=== PATIENT | female | born 1990 | race African-American/Black ===

== ENCOUNTER 2022-02-19 08:52 | Inpatient (IN) | payer MEDICARE, MEDICAID ==
[~2022-02-19] VITALS: Ht 165.1 cm; Wt 113.4 kg
[2022-02-19] MEDS ORDERED: NALOXONE HCL 0.4 MG/ML 1ML VIAL IM PRN (09:45)
[2022-02-19] MEDS ORDERED: CARBOPROST TROMETHAMINE 250 MCG/ML AMPUL IM PRN (09:45)
[2022-02-19] MEDS ORDERED: BUTORPHANOL TARTRATE 2 MG/ML VIAL IV PRN (09:45)
[2022-02-19] MEDS ORDERED: OXYTOCIN 30 UNITS/500ML NS PMX 500 ML IV SCH (09:45)
[2022-02-19] MEDS ORDERED: METHYLERGONOVINE MALEATE 0.2 MG/ML IM PRN (09:45)
[2022-02-19] MEDS ORDERED: LIDOCAINE HCL 1% 20ML VIAL (Pyxis) INJ INFIL SCH (09:45)
[2022-02-19] MEDS ORDERED: LACTATED RINGERS 1,000 ML IV SCH (10:00)
[2022-02-19] MEDS ORDERED: PENICILLIN G POTASSIUM 5 MMU in DEXT 5% WATER 100 ML IV SCH (10:00)
[2022-02-19 10:28] VITALS: BP 146/67
[2022-02-19 10:52] LABS: CHLORIDE 108 mEq/L (98-107)
[2022-02-19 10:54] LABS: INR 0.9; PARTIAL THROMBOPLASTIN TIME 31.6 sec (23.4-31.0); PROTHROMBIN TIME 9.7 sec (9.6-11.0)
[2022-02-19 11:23] LABS: BASOPHILS % 0.3 % (0.0-2.0); EOSINOPHILS % 0.1 % (0.0-5.0); HEMATOCRIT. 35.2 % (36.0-48.0); HEMOGLOBIN. 11.7 g/dL (12.0-16.0); LYMPHOCYTES % 12.7 % (20.0-50.0); MEAN CORPUSCULAR HEMOGLOBIN 29.8 pg (28.0-32.0); MEAN CORPUSCULAR VOLUME 89.5 fL (81.0-99.0); MEAN PLATELET VOLUME 9.2 fl (7.4-10.4); MONOCYTES % 7.2 % (2.0-8.0); NEUTROPHILS % 79.7 % (40.0-76.0); PLATELET 245 x1000/uL (130-400); RED BLOOD CELL COUNT 3.94 mill/uL (4.2-5.4); RED CELL DISTRIBUTION WIDTH 15.1 % (11.6-14.6)
[2022-02-19 13:05] LABS: HEPATITIS B SURFACE ANTIGEN NEGATIVE
[2022-02-19] MEDS ORDERED: PENICILLIN G POTASSIUM 2.5 MMU in DEXTROSE 5% WATER 50 ML IV SCH (14:00)
[2022-02-19 20:40] LABS: CLARITY URINE CLEAR (CLEAR); COLOR URINE DARK YELLOW (YELLOW); KETONES URINE 1+ (NEGATIVE); LEUKOCYTE ESTERASE URINE NEGATIVE (NEGATIVE); NITRITE URINE NEGATIVE (NEGATIVE); OCCULT BLOOD URINE NEGATIVE (NEGATIVE); PH URINE 6.5 (4.5-8.0); PROTEIN URINE 1+ (NEGATIVE); SPECIFIC GRAVITY URINE 1.022 (1.005-1.030)
[2022-02-19 21:05] LABS: *AMPHETAMINES SCREEN URINE NEGATIVE (NEGATIVE); *BARBITURATES SCREEN URINE NEGATIVE (NEGATIVE); *BENZODIAZEPINES SCREEN URINE NEGATIVE (NEGATIVE); *COCAINE SCREEN URINE NEGATIVE (NEGATIVE); CANNABINOID URINE SCREEN NEGATIVE (NEGATIVE); METHADONE URINE SCREEN NEGATIVE (NEGATIVE); OPIATES URINE SCREEN NEGATIVE (NEGATIVE); PHENCYCLIDINE URINE SCREEN NEGATIVE (NEGATIVE)
== END 2022-02-19 11:50 | disposition left against medical advice (07) | DRG 833 ==
LOC: 8 EST LDRP 08:52 → OBSVTOIN 08:52
PROVIDERS: ADMIT Obstetrics & Gynecology; ATTEND Obstetrics & Gynecology
DX: O99.343 Other mental disorders complicating pregnancy, third trimester (principal); F41.9 Anxiety disorder, unspecified; F31.9 Bipolar disorder, unspecified; Z53.29 Procedure and treatment not carried out because of patient's decision for other reasons; Z20.822 Contact with and (suspected) exposure to COVID-19; O99.820 Streptococcus B carrier state complicating pregnancy; F20.9 Schizophrenia, unspecified; Z3A.40 40 weeks gestation of pregnancy
CPT/HCPCS: 36415; 76805; 80053; 80305; 81003; 85025; 86592; 86703; 86762; 86850; 86900; 87340; 87426; J0595; J2540; J3490; J7060; J7120; J2590

== ENCOUNTER 2022-02-19 15:58 | Inpatient (IN) | payer MEDICARE, MEDICAID ==
[~2022-02-19] VITALS: Ht 165.1 cm; Wt 96.0 kg
[2022-02-19] MEDS ORDERED: BUTORPHANOL TARTRATE 2 MG/ML VIAL IV PRN (16:45)
[2022-02-19] MEDS ORDERED: BUTORPHANOL TARTRATE 2 MG/ML VIAL IM PRN (16:45)
[2022-02-19] MEDS ORDERED: PROPOFOL 200MG/20ML VIAL IV ONE (19:00)
[2022-02-19] MEDS ORDERED: SUCCINYLCHOLINE CHLORIDE 200MG/10ML IV ONE (19:03)
[2022-02-19] MEDS ORDERED: MIDAZOLAM HCL 2 MG/2 ML VIAL ONE (19:15)
[2022-02-19] MEDS ORDERED: HYDROMORPHONE HCL/PF 2MG/ML CPJ ONE (19:49)
[2022-02-19] MEDS ORDERED: CEFAZOLIN SODIUM 1000MG/VIAL ONE (19:50)
[2022-02-19] MEDS ORDERED: DEXAMETHASONE 4MG/ML 1ML VIAL ONE (19:50)
[2022-02-19] MEDS ORDERED: ONDANSETRON HCL 4MG/2ML INJ ONE (19:50)
[2022-02-19] MEDS ORDERED: LIDOCAINE HCL 1% 20ML VIAL (Pyxis) INJ ONE (19:51)
[2022-02-19] MEDS ORDERED: ONDANSETRON HCL 4MG/2ML INJ IV PRN (20:00)
[2022-02-19] MEDS ORDERED: DEXT 5%/LACTATED RINGERS 1,000 ML IV SCH (20:00)
[2022-02-19] MEDS ORDERED: LANOLIN OINT 7GM TUBE TOP PRN (20:00)
[2022-02-19] MEDS ORDERED: DIPHENHYDRAMINE 25MG CAPSULE PO PRN (20:00)
[2022-02-19] MEDS ORDERED: BISACODYL 10MG SUPP PR PRN (20:00)
[2022-02-19] MEDS ORDERED: OXYTOCIN 30 UNITS/500ML NS PMX 500 ML IV SCH (20:00)
[2022-02-19] MEDS ORDERED: IBUPROFEN 400MG TABLET PO PRN (20:00)
[2022-02-19] MEDS ORDERED: HEMORRHOIDAL SUPP PR PRN (20:00)
[2022-02-19] MEDS ORDERED: RHO(D) IMMUNE GLOBULIN 300 MCG/SYR IM PRN (20:00)
[2022-02-19] MEDS ORDERED: ACETAMINOPHEN WITH CODEINE 300/30MG TABLET PO PRN (20:00)
[2022-02-19] MEDS ORDERED: NALOXONE HCL 0.4MG/ML VIAL IV PRN (20:15)
[2022-02-19] MEDS ORDERED: DOCUSATE SODIUM 100MG CAPSULE PO SCH (21:00)
[2022-02-19] MEDS ORDERED: HALOPERIDOL LACTATE 5MG/ML VIAL IM NR (21:00)
[2022-02-19] MEDS ORDERED: DIPHENHYDRAMINE 50MG/ML VIAL IV NR (21:00)
[2022-02-19] MEDS: HYDROMORPHONE HCL/PF 2MG/ML CPJ IV PRN (22:51)
[2022-02-20 00:20] VITALS: BP 138/79
[2022-02-20] MEDS: HYDROMORPHONE HCL/PF 2MG/ML CPJ IV PRN (02:51)
[2022-02-20 04:00] VITALS: BP 135/76
[2022-02-20 06:21] LABS: HEMATOCRIT. 33.7 % (36.0-48.0); HEMOGLOBIN. 11.2 g/dL (12.0-16.0); MEAN CORPUSCULAR HEMOGLOBIN 30.1 pg (28.0-32.0); MEAN CORPUSCULAR VOLUME 90.2 fL (81.0-99.0); MEAN PLATELET VOLUME 9.1 fl (7.4-10.4); PLATELET 228 x1000/uL (130-400); RED BLOOD CELL COUNT 3.74 mill/uL (4.2-5.4); RED CELL DISTRIBUTION WIDTH 15.5 % (11.6-14.6)
[2022-02-20] MEDS ORDERED: DIPHENHYDRAMINE 50MG/ML VIAL IV NR (07:15)
[2022-02-20] MEDS: FERROUS SULFATE 325MG TABLET PO SCH ×2 (07:30→12:30)
[2022-02-20] MEDS ORDERED: HALOPERIDOL LACTATE 5MG/ML VIAL IM NR (08:00)
[2022-02-20] MEDS ORDERED: HALOPERIDOL 5MG TABLET PO NR (08:00)
[2022-02-20 09:30] VITALS: BP 138/80
[2022-02-20] MEDS: MAGNESIUM/ALUMINUM HYDROXIDE/SIMETHICONE 30ML UDC PO SCH (12:30)
[2022-02-20 13:00] VITALS: BP 148/85
[2022-02-20] MEDS: SIMETHICONE 80MG TABLET CHEW PO SCH (13:00)
[2022-02-20] MEDS ORDERED: HALOPERIDOL 5MG TABLET PO PRN (14:00)
[2022-02-20 14:27] LABS: PLATELET ESTIMATE NORMAL
[2022-02-20] MEDS ORDERED: LORAZEPAM 1MG TABLET PO PRN (15:00)
[2022-02-20 16:29] VITALS: BP 140/80
[2022-02-20 20:00] VITALS: BP 135/75
[2022-02-20] MEDS: IBUPROFEN 800MG TABLET PO PRN (20:00)
[2022-02-21] VITALS (7 sets, daily range): BP systolic 121–148; BP diastolic 70–97
[2022-02-21] MEDS: IBUPROFEN 800MG TABLET PO PRN ×3 (04:32→21:23)
[2022-02-21 06:27] LABS: BASOPHILS % 0.2 % (0.0-2.0); EOSINOPHILS % 0.1 % (0.0-5.0); HEMATOCRIT. 32.7 % (36.0-48.0); HEMOGLOBIN. 10.8 g/dL (12.0-16.0); LYMPHOCYTES % 13.9 % (20.0-50.0); MEAN CORPUSCULAR HEMOGLOBIN 29.7 pg (28.0-32.0); MEAN CORPUSCULAR VOLUME 90.1 fL (81.0-99.0); MEAN PLATELET VOLUME 8.9 fl (7.4-10.4); MONOCYTES % 7.8 % (2.0-8.0); PLATELET 234 x1000/uL (130-400); RED BLOOD CELL COUNT 3.63 mill/uL (4.2-5.4); RED CELL DISTRIBUTION WIDTH 15.6 % (11.6-14.6)
[2022-02-21] MEDS: SIMETHICONE 80MG TABLET CHEW PO SCH ×4 (08:00→14:11)
[2022-02-21] MEDS: MAGNESIUM/ALUMINUM HYDROXIDE/SIMETHICONE 30ML UDC PO SCH ×2 (09:08→21:00)
[2022-02-21] MEDS: FERROUS SULFATE 325MG TABLET PO SCH ×3 (09:08→17:30)
[2022-02-21] MEDS: ONDANSETRON HCL 4MG/2ML INJ IV PRN ×2 (15:08→21:29)
[2022-02-21] MEDS: ARIPIPRAZOLE 5MG TABLET PO SCH (15:09)
[2022-02-22] VITALS: BP 141/76
[2022-02-22 04:00] VITALS: BP 140/84
[2022-02-22] MEDS: MAGNESIUM/ALUMINUM HYDROXIDE/SIMETHICONE 30ML UDC PO SCH ×5 (07:30→21:24)
[2022-02-22 08:00] VITALS: BP 134/82
[2022-02-22] MEDS: PRENATAL VIT/FE FUMARATE/FA TABLET PO SCH (09:15)
[2022-02-22] MEDS: SIMETHICONE 80MG TABLET CHEW PO SCH ×4 (09:15→21:24)
[2022-02-22] MEDS: FERROUS SULFATE 325MG TABLET PO SCH ×3 (09:16→17:30)
[2022-02-22] MEDS: ARIPIPRAZOLE 5MG TABLET PO SCH (09:16)
[2022-02-22 16:00] VITALS: BP 137/85
[2022-02-22 19:30] VITALS: BP 147/88
[2022-02-23] VITALS: BP 133/79
[2022-02-23 04:00] VITALS: BP 131/77
[2022-02-23] MEDS: SIMETHICONE 80MG TABLET CHEW PO SCH ×2 (08:00→13:00)
[2022-02-23 08:12] VITALS: BP 136/82
[2022-02-23] MEDS: ARIPIPRAZOLE 5MG TABLET PO SCH ×2 (08:33→09:02)
[2022-02-23] MEDS: PRENATAL VIT/FE FUMARATE/FA TABLET PO SCH (08:34)
[2022-02-23] MEDS: FERROUS SULFATE 325MG TABLET PO SCH ×2 (08:34→12:30)
[2022-02-23] MEDS: MAGNESIUM/ALUMINUM HYDROXIDE/SIMETHICONE 30ML UDC PO SCH (12:30)
[2022-02-23 15:15] VITALS: BP 131/79
== END 2022-02-23 19:00 | disposition home or self-care (01) | DRG 788 ==
LOC: ER 15:58 → 8 EST LDRP 18:45 → OBSVTOIN 18:45 → 8EST 02-20 00:20 → UNDODISIN 02-22 16:30
PROVIDERS: ADMIT Obstetrics & Gynecology; ATTEND Obstetrics & Gynecology
PROC: 10D00Z1 Extraction of Products of Conception, Low, Open Approach (ICD-10-PCS; principal; 2022-02-19)
DX: O62.0 Primary inadequate contractions (principal); Z37.0 Single live birth; O99.344 Other mental disorders complicating childbirth; F20.9 Schizophrenia, unspecified; F31.9 Bipolar disorder, unspecified; O32.4XX0 Maternal care for high head at term, not applicable or unspecified; O77.0 Labor and delivery complicated by meconium in amniotic fluid; F41.9 Anxiety disorder, unspecified; Z3A.41 41 weeks gestation of pregnancy; O99.02 Anemia complicating childbirth; D64.9 Anemia, unspecified; Z78.1 Physical restraint status
CPT/HCPCS: 36415; 85025; 88307; 99281; 99285; J0330; J0690; J1100; J1170; J1200; J1630; J2250; J2405; J2704; J3490; J2590